=== PATIENT | male | born 1995 | race Caucasian/White ===

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

== ENCOUNTER 2019-03-12 16:39 | Emergency (ER) | payer MEDICAID ==
[~2019-03-12] VITALS: Ht 162.6 cm; Wt 64.0 kg
[2019-03-12 16:51] VITALS: Ht 162.6 cm; Wt 64.0 kg
[2019-03-12 18:36] VITALS: BP 121/74
== END 2019-03-12 18:36 | disposition home or self-care (01) ==
LOC: ED 16:39
DX: M54.6 Pain in thoracic spine (principal); F41.9 Anxiety disorder, unspecified
CPT/HCPCS: Q0092